=== PATIENT | female | born 1960 | race Caucasian/White ===

== ENCOUNTER → 2017-12-04 | Outpatient (CLI) | payer OTHER ==
--- NOTE | 2017-12-04 13:25 | CTL ---
EXAMINATION TYPE: CT Low Dose Lung DATE OF EXAM ORDERED: 12/04/2017 HISTORY: Long-term tobacco use. Lung cancer screening CT DLP: 34.[address] CTDI: 0.9 mGy Automated exposure control for dose reduction was used. SCREENING VISIT: Initial study COMPARISON: None TECHNIQUE: Low dose computed tomography scan was performed through the chest at 1 mm thick sections a nd reconstructed images in the coronal plane at [address] DIAGNOSTIC QUALITY: Satisfactory FINDINGS: LUNG NODULES: Present, detailed below: Right lung a nodule with a size of 5 x [address] Image slide number [id number] right lower lobe a butting fissure. There are few additional scattered micronodules measuring under 4 mm, for reference there is lateral right basilar nodule measuring 5 x 3 mm axial image 275. LUNGS: COPD: Severity: Mild Fibrosis: Severity: Mild to minimal Lymph nodes: None Other findings: None BILATERAL PLEURAL SPACE: Effusion: None Calcification: None Thickening: None Pneumothorax: None HEART: Heart Size: Normal Coronary calcification: Moderate Pericardial effusion: None OTHER FINDINGS: Upper abdomen: No suspicious finding is seen. Bony thorax: There is mild to moderate multilevel anterior and lateral spurring. Supraclavicular region: No suspicious finding. Other: Mild calcified plaque of visualized aorta. IMPRESSION: A 5 mm right basilar nodule is present. FOLLOW UP CT CHEST RECOMMENDATION: Six-month follow-up low-dose lung screening CT CT LUNG RAD: 3 probable benign findings
== END | disposition home or self-care (01) ==
LOC: RADCTMAIN 12:24
PROVIDERS: ATTEND Nurse Practitioner Family
DX: Z12.2 Encounter for screening for malignant neoplasm of respiratory organs (principal); R91.8 Other nonspecific abnormal finding of lung field; Z87.891 Personal history of nicotine dependence

== ENCOUNTER → 2019-07-06 | Outpatient (CLI) | payer OTHER ==
--- NOTE | 2019-07-08 13:09 | CTL ---
EXAMINATION TYPE: CT Low Dose Lung DATE OF EXAM ORDERED: 07/06/2019 HISTORY: Personal history of tobacco use. Lung cancer screening CT DLP: 51.[address] CTDI: 1.3 mGy Automated exposure control for dose reduction was used. SCREENING VISIT: Subsequent COMPARISON: 06/07/2018 TECHNIQUE: Low dose computed tomography scan was performed through the chest at 1 mm thick sections a nd reconstructed images in the coronal plane at [address] DIAGNOSTIC QUALITY: Satisfactory FINDINGS: LUNG NODULES: Present, detailed below: There is a 0.4 cm nodule in the periphery of the right lateral apex. Series 4 image 30. Stable. There is a 0.4 cm nodule within the periphery of the posterior left apex. Series 4 image 32. Stable f rom prior. There is a 0.4 cm area of pneumonitis in the periphery of the left lower lung field. Series 4 image 1 59. This may be new. There is a 0.7 cm nodular density in the periphery of the right middle lobe near the lung base. Serie s 4 image 238. LUNGS: COPD: Severity: Mild Fibrosis: Severity: None Lymph nodes: None Other findings: None RIGHT PLEURAL SPACE: Effusion: None Calcification: None Thickening: Minimal posterior right upper Pneumothorax: None LEFT PLEURAL SPACE: Effusion: None Calcification: None Thickening: None Pneumothorax: None HEART: Heart Size: Normal Coronary calcification: Minimal Pericardial effusion: None OTHER FINDINGS: Upper abdomen: Normal Bony thorax: Normal Supraclavicular region: Normal Other: Ascending thoracic aorta at the level the main pulmonary artery measures 3.3 cm. The main pul monary artery at the bifurcation measures 2.0 cm. IMPRESSION: 1. No suspicious acute changes. FOLLOW UP CT CHEST RECOMMENDATION: Yes, follow-up screening low-dose CT chest in one year CT LUNG RAD: 2
== END | disposition home or self-care (01) ==
LOC: RADCTMAIN 10:12
PROVIDERS: ATTEND Family Medicine
DX: Z12.2 Encounter for screening for malignant neoplasm of respiratory organs (principal); F17.210 Nicotine dependence, cigarettes, uncomplicated